=== PATIENT | female | born 1970 | race Caucasian/White ===

== ENCOUNTER 2018-12-09 12:10 | Emergency (ER) | payer OTHER ==
[2018-12-09 12:38] VITALS: BP 116/79; PULSE 110; TEMP 98.2; BMI 36.5
--- NOTE | 2018-12-09 12:39 | PDOC ---
Rapid Medical Evaluation Chief Complaint: Pain, Acute Time Seen by Provider: 12/09/18 12:37 Medical Evaluation: 12/09/18 12:37 I have performed a brief in-person evaluation of this patient The patient present with a chief complaint of: abdominal pain x 2. S/p bypass states ate plantain not sure if that is what is upetting her stomach Pertinent physical exam findings: NAD even and unlabored breathing mild lump felt in mid upper abdomen I have ordered the following: The patient will proceed to the ED for further evaluation. Discharge Disposition - Diagnosis Abdominal pain - Referrals - Patient Instructions - Post Discharge Activity
--- NOTE | 2018-12-09 15:35 | PDOC ---
Attending Attestation - HPI HPI: 12/09/18 16:44 The patient is a 48 year old female, with a significant past medical history of a recent gastric sleeve (2 weeks ago), who presents to the emergency department with, 2 days of epigastric abdominal pain with associated constipation and one episode of emesis. She denies recent fevers, chills, headache or dizziness. She denies recent dysuria, frequency, urgency or hematuria. She denies recent chest pain or shortness of breath. - Physicial Exam PE: 12/09/18 16:44 GENERAL: The patient is in no acute distress. HEAD: Normal with no signs of trauma. EYES: PERRLA, EOMI, sclera anicteric, conjunctiva clear. ENT: Ears normal, nares patent, oropharynx clear without exudates. Moist mucous membranes. NECK: Normal range of motion, supple without lymphadenopathy, JVD, or masses. LUNGS: Breath sounds equal, clear to auscultation bilaterally. No wheezes, and no crackles. HEART:Regular rate and rhythm, normal S1 and S2 without murmur, rub or gallop. ABDOMEN: +Epigastric tenderness. Soft,normoactive bowel sounds. No guarding, no rebound. No masses palpable. EXTREMITIES: Normal range of motion, no edema. No clubbing or cyanosis. No erythema, or tenderness. NEUROLOGICAL: Cranial nerves II through XII grossly intact. Normal speech. No focal neurological deficits. MUSCULOSKELETAL: Back non-tender to palpation, no CVA tenderness SKIN: Warm, Dry, normal turgor, no rashes or lesions noted. <Kyle Wood - Last Filed: 12/09/18 16:44> - Resident Resident Name: Lori Allison - ED Attending Attestation I have performed the following: I have examined & evaluated the patient, The case was reviewed & discussed with the resident, I agree w/resident's findings & plan, Exceptions are as noted - HPI HPI: - Medical Decision Making 12/10/18 13:21 Pt is a 48 yo F h/o recent gastric sleeve Pt has been drinking shakes She had a piece of chocolate yesterday Pt has had severe pain since then No fevers or chills Pt feels like vomiting but can not No diarrhea Pt ordered for labs and CT Pt could not be found for further assessment This patient has eloped <Elisabeth Joaquin - Last Filed: 12/10/18 13:33> Attestations - Attestations 12/09/18 16:45 Documentation prepared by Kyle Wood, acting as medical center representative for Elisabeth Joaquin MD. <Kyle Wood - Last Filed: 12/09/18 16:44>
--- NOTE | 2018-12-09 16:08 | PDOC ---
History of Present Illness - General Chief Complaint: Pain, Acute Stated Complaint: ABD PAIN Time Seen by Provider: 12/09/18 12:37 History Source: Patient Exam Limitations: No Limitations - History of Present Illness Initial Comments: 12/09/18 16:03 Patient is a 48 y/o female with a history of gastric bypass who presents for mid epigastric abdominal pain. Patient had her surgery two weeks ago. On Sunday she had been eating and began to have the pain. She drinks a lot of protein shakes and tuna fish. She states she is nervous to eat because it causes her a lot of pain, She has been burping a lot and hasn't had a bowel movement in a few days. She states she can pass gas but isnt passing a lot. Patient has no other complaints. She had one episode of vomiting when she took a pill to help her have a bowel movement but she threw it up. Past History - Suicide/Smoking/Psychosocial Hx Smoking History: Never smoked Have you smoked in the past 12 months: No Information on smoking cessation initiated: No Hx Alcohol Use: No Drug/Substance Use Hx: No Review of Systems - Review of Systems Constitutional: No: Chills, Fever HEENTM: No: Eye Pain Respiratory: No: Cough, Orthopnea Cardiac (ROS): No: Chest Pain ABD/GI: Yes: Nausea. No: Abdominal Distended, Diarrhea, Vomiting : No: Burning, Discharge *Physical Exam - Vital Signs Last Vital Signs Temp Pulse Resp BP Pulse Ox 98.2 F 110 H 20 116/79 99 12/09/18 12:33 12/09/18 12:33 12/09/18 12:33 12/09/18 12:33 12/09/18 12:33 - Physical Exam Comments: 12/09/18 16:07 GENERAL: A&O x3, no acute distress EYES: EOMI HEART: RRR, no murmurs, rubs, or gallops LUNGS: CTAL B/L ABDOMEN: tenderness mid epigastric, does not radiate EXTREMITIES: no pitting edema SKN: no rashes or ulcers Medical Decision Making - Medical Decision Making 12/09/18 16:08 f/u labs f/u imaging Surgeon from [facility] in [facility], by Dr. Frausto 12/09/18 18:37 patient left before treatment could be completed *DC/Admit/Observation/Transfer Diagnosis at time of Disposition: Abdominal pain - Discharge Dispostion Disposition: ELOPED - Referrals Referrals: Larissa Perry MD [Primary Care Provider] - - Patient Instructions - Post Discharge Activity
== END 2018-12-09 17:21 | disposition left against medical advice (07) ==
LOC: JER 12:10
DX: R10.9 Unspecified abdominal pain (principal); Z98.84 Bariatric surgery status
CPT/HCPCS: 99281-25